=== PATIENT | male | born 1950 | race Hispanic/Latino ===

== ENCOUNTER 2018-01-31 19:05 | Emergency (ER) | payer OTHER ==
[~2018-01-31] VITALS: Ht 175.3 cm; Wt 128.8 kg
[~2018-01-31 19:05] MED LIST: ASPIRIN BUFFER325 MG PO; AZITHROMYCIN250 MG PO; DIOVAN HCT 1601 EAC1 PO; LISINOPRIL-HCT1 EAC1 PO; MEDROL4 MG/DOSE-; TYLENOL325 MG PO
== END 2018-01-31 19:33 | disposition home or self-care (01) ==
LOC: ER 19:05
DX: H57.11 Ocular pain, right eye (principal); H00.011 Hordeolum externum right upper eyelid; I10 Essential (primary) hypertension
CPT/HCPCS: 99282

== ENCOUNTER 2020-10-02 19:26 | Observation (INO) | payer MEDICARE, OTHER ==
[~2020-10-02] VITALS: Ht 175.3 cm; Wt 136.1 kg
[2020-10-02] MEDS ORDERED: ONDANSETRON HCL INJ 2MG/ML 2ML 2 MG/ML VIAL IV STA (19:30)
[2020-10-02] MEDS ORDERED: MORPHINE SULFATE INJ 10 MG/ML IV ONE (19:30)
[2020-10-02] MEDS ORDERED: SODIUM CHLORIDE 0.9% 1000ML 1,000 ML IV SCH (19:30)
[2020-10-02 19:54] LABS: BASOPHILS % 0.3 % (0.0-1.0); EOSINOPHILS % 0.1 % (0.0-6.0); HEMATOCRIT 41.1 % (38.2-49.6); HEMOGLOBIN 13.4 g/dL (14.0-18.0); LYMPHOCYTES # (AUTO) 1.9 (1.0-3.2); LYMPHOCYTES % 15.3 % (18.0-39.1); MEAN CORPUSCULAR HEMOGLOBIN 28.3 pg (28-32); MEAN CORPUSCULAR HGB CONC 32.6 g/dL (31-35); MEAN CORPUSCULAR VOLUME 86.7 fL (81-99); MONOCYTES # (AUTO) 0.8 (0.2-0.8); MONOCYTES % 6.3 % (4.4-11.3); NEUTROPHILS # (AUTO) 9.7 (2.1-6.9); PLATELET COUNT 240 x10e3/uL (140-360); RED BLOOD COUNT 4.74 x10e6/uL (4.3-5.7); RED CELL DISTRIBUTION WIDTH 14.8 % (11.7-14.4)
[2020-10-02 19:58] LABS: CLARITY,URINE HAZY (CLEAR); COLOR,URINE YELLOW (YELLOW); KETONES,URINE NEGATIVE (NEGATIVE); LEUKOCYTE ESTERASE ,URINE NEGATIVE (NEGATIVE); NITRITE,URINE NEGATIVE (NEGATIVE); PROTEIN,URINE DIPSTICK NEGATIVE (NEGATIVE); URINE UROBILINOGEN 1 mg/dL (0.2 - 1)
[2020-10-02 19:59] LABS: BACTERIA,URINE FEW /HPF; EPITHELIAL CELLS,URINE FEW /LPF; WBC,URINE (MAN) 0-5 /HPF (0-5)
[2020-10-02 20:12] LABS: ALANINE AMINOTRANSFERASE 37 IU/L (0-55); ALBUMIN 3.6 g/dL (3.5-5.0); ALBUMIN/GLOBULIN RATIO 0.9 (0.8-2.0); ALKALINE PHOSPHATASE 108 IU/L (40-150); ANION GAP 14.6 mmol/L (8-16); BLOOD UREA NITROGEN 12 mg/dL (7-26); BUN/CREATININE RATIO 19 (6-25); CALCIUM 8.8 mg/dL (8.4-10.2); CARBON DIOXIDE 31 mmol/L (22-29); CHLORIDE 99 mmol/L (98-107); CREATINE KINASE 101 IU/L (30-200); CREATININE, SERUM 0.63 mg/dL (0.72-1.25); EST GLOMERULAR FILTRATION RATE > 60 ML/MIN (60-); GLUCOSE 105 mg/dL (74-118); POTASSIUM 3.6 mmol/L (3.5-5.1); SODIUM 141 mmol/L (136-145)
[2020-10-02] MEDS ORDERED: MORPHINE SULFATE INJ 2 MG/ML SYR ONE (20:36)
[2020-10-02] MEDS ORDERED: IOPAMIDOL 370 MG/ML 200 ML INFUS..BTL INJ ONE (20:45)
[2020-10-02] MEDS ORDERED: SODIUM CHLORIDE 0.9% 50ML 50 ML ONE (20:45)
[2020-10-02] MEDS: SODIUM CHLORIDE 0.9% 1000ML 1,000 ML IV SCH ×2 (22:14→22:39)
[2020-10-02] MEDS ORDERED: ONDANSETRON HCL INJ 2MG/ML 2ML 2 MG/ML VIAL IV PRN (22:15)
[2020-10-02] MEDS ORDERED: TAMSULOSIN HCL 0.4 MG CAP PO SCH (22:15)
[2020-10-02] MEDS ORDERED: MORPHINE SULFATE INJ 4 MG/ML INJ 1ML IV PRN (22:15)
[2020-10-02 23:46] VITALS: BP 151/78
[2020-10-03] VITALS: BP 151/78
[2020-10-03 04:00] VITALS: BP 151/76
[2020-10-03 06:14] LABS: BASOPHILS % 0.3 % (0.0-1.0); EOSINOPHILS % 0.1 % (0.0-6.0); HEMOGLOBIN 13.5 g/dL (14.0-18.0); LYMPHOCYTES # (AUTO) 1.4 (1.0-3.2); LYMPHOCYTES % 11.6 % (18.0-39.1); MEAN CORPUSCULAR HEMOGLOBIN 28.7 pg (28-32); MEAN CORPUSCULAR HGB CONC 32.1 g/dL (31-35); MEAN CORPUSCULAR VOLUME 89.4 fL (81-99); MONOCYTES # (AUTO) 0.8 (0.2-0.8); MONOCYTES % 6.3 % (4.4-11.3); NEUTROPHILS # (AUTO) 9.6 (2.1-6.9); NEUTROPHILS % 80.9 % (38.7-80.0); PLATELET COUNT 222 x10e3/uL (140-360); RED CELL DISTRIBUTION WIDTH 14.9 % (11.7-14.4)
[2020-10-03 06:49] LABS: ALANINE AMINOTRANSFERASE 33 IU/L (0-55); ALBUMIN 3.3 g/dL (3.5-5.0); ALBUMIN/GLOBULIN RATIO 0.9 (0.8-2.0); ALKALINE PHOSPHATASE 96 IU/L (40-150); ANION GAP 14.8 mmol/L (8-16); BLOOD UREA NITROGEN 9 mg/dL (7-26); BUN/CREATININE RATIO 15 (6-25); CALCIUM 8.5 mg/dL (8.4-10.2); CARBON DIOXIDE 29 mmol/L (22-29); CHLORIDE 102 mmol/L (98-107); CREATININE, SERUM 0.62 mg/dL (0.72-1.25); EST GLOMERULAR FILTRATION RATE > 60 ML/MIN (60-); GLUCOSE 98 mg/dL (74-118); POTASSIUM 3.8 mmol/L (3.5-5.1); SODIUM 142 mmol/L (136-145)
[2020-10-03 08:00] VITALS: BP 137/69
[2020-10-03] MEDS ORDERED: CLONIDINE HCL0.1 MG PO (08:38)
[2020-10-03] MEDS ORDERED: IRBESARTAN300 MG PO (08:38)
[2020-10-03] MEDS ORDERED: LABETALOL HCL100 MG PO (08:38)
[2020-10-03] MEDS ORDERED: ATORVASTATIN CA20 MG PO (08:38)
[2020-10-03] MEDS ORDERED: CEFTRIAXONE SOD 1 GM/NS 50 ML 50 ML IV SCH (08:45)
[2020-10-03] MEDS ORDERED: HYDRALAZINE HCL 25 MG TAB PO PRN (08:45)
[2020-10-03] MEDS ORDERED: TAMSULOSIN HCL 0.4 MG CAP PO SCH (08:45)
[2020-10-03] MEDS ORDERED: ACETAMINOPHEN/CODEINE 300MG - 30MG TAB PO PRN (08:45)
[2020-10-03] MEDS: SODIUM CHLORIDE 0.9% 1000ML 1,000 ML IV SCH (08:49)
[2020-10-03 08:50] VITALS: BP 137/69
[2020-10-03 12:00] VITALS: BP 143/77
== END 2020-10-03 14:14 | disposition home or self-care (01) ==
LOC: ER 19:32 → ERHOLD 22:23 → MED/SURG2 23:12
PROVIDERS: ADMIT Internal Medicine; ATTEND Internal Medicine
DX: N13.2 Hydronephrosis with renal and ureteral calculous obstruction (principal); I10 Essential (primary) hypertension; E66.01 Morbid (severe) obesity due to excess calories; Z68.41 Body mass index [BMI] 40.0-44.9, adult; N13.4 Hydroureter; Z20.822 Contact with and (suspected) exposure to COVID-19; N40.0 Benign prostatic hyperplasia without lower urinary tract symptoms
CPT/HCPCS: 36415 ×2; 74177; 80053 ×2; 81001; 82550; 82553; 83690; 84484; 85025 ×2; 93005; 99284; G0378 ×2; J0696; J2270; J2405; J7030 ×2; Q9967; U0002

== ENCOUNTER 2023-12-19 20:10 | Inpatient (IN) | payer MEDICARE ==
[~2023-12-19] VITALS: Ht 175.3 cm; Wt 158.8 kg
[~2023-12-19 20:10] MED LIST changes: +AMIODARONE HCL400 MG PO; +AMLODIPINE BESYL5 MG PO; +ATORVASTATIN CA20 MG PO; +CEFDINIR300 MG PO; +CLONIDINE HCL0.1 MG PO; +DOXAZOSIN MESYLA2 MG PO; +DOXYCYCLINE HY100 MG PO; +ELIQUIS5 MG PO; +FAMOTIDINE20 MG PO; +FLOMAX0.4 MG PO; +FUROSEMIDE40 MG PO; +IRBESARTAN300 MG PO; +LABETALOL HCL100 MG PO; +NIFEDIPINE ER30 M1 PO; +OMEPRAZOLE40 MG PO; +POTASSIUM CHLO20 ME1 PO
[2023-12-19] MEDS ORDERED: ACETAMINOPHEN 325 MG TAB PO STA (20:24)
[2023-12-19] MEDS ORDERED: SODIUM CHLORIDE 0.9% 1000ML 1,000 ML IV STA (20:24)
[2023-12-19] MEDS: ACETAMINOPHEN 1000 MG/100 ML IV STA (20:36)
[2023-12-19] MEDS ORDERED: ACETAMINOPHEN 1000 MG/100 ML 100 ML IV ONE (20:37)
[2023-12-19 20:41] LABS: BASOPHILS % 0.2 % (0.0-1.0); EOSINOPHILS % 0.1 % (0.0-6.0); HEMATOCRIT 41.3 % (38.2-49.6); HEMOGLOBIN 13.7 g/dL (14.0-18.0); LYMPHOCYTES # (AUTO) 0.6 (1.0-3.2); LYMPHOCYTES % 5.2 % (18.0-39.1); MEAN CORPUSCULAR HEMOGLOBIN 29.1 pg (28-32); MEAN CORPUSCULAR HGB CONC 33.2 g/dL (31-35); MEAN CORPUSCULAR VOLUME 87.7 fL (81-99); MONOCYTES % 0.2 % (4.4-11.3); NEUTROPHILS # (AUTO) 10.4 (2.1-6.9); NEUTROPHILS % 93.8 % (38.7-80.0); PLATELET COUNT 247 x10e3/uL (140-360); RED BLOOD COUNT 4.71 x10e6/uL (4.3-5.7); RED CELL DISTRIBUTION WIDTH 15.9 % (11.7-14.4); WHITE BLOOD COUNT 11.06 x10e3/uL (4.8-10.8)
[2023-12-19 20:58] LABS: ALBUMIN 3.9 g/dL (3.5-5.0); ALBUMIN/GLOBULIN RATIO 0.9 (0.8-2.0); ANION GAP 22.2 mmol/L (8-16); BILIRUBIN,TOTAL 0.7 mg/dL (0.2-1.2); CALCIUM 9.8 mg/dL (8.4-10.2); CREATININE, SERUM 1.09 mg/dL (0.72-1.25); TOTAL PROTEIN 8.3 g/dL (6.5-8.1)
[2023-12-19 20:59] LABS: POTASSIUM 3.2 mmol/L (3.5-5.1)
[2023-12-19 21:04] LABS: B-TYPE NATRIURETIC PEPTIDE2 39.5 pg/mL (0-100); TROPONIN I 0.007 ng/mL (0-0.300)
[2023-12-19] MEDS ORDERED: SODIUM CHLORIDE 0.9% 1000ML 1,000 ML ONE (21:22)
[2023-12-19] MEDS: SODIUM CHLORIDE 0.9% 1000ML 1,000 ML IV STA (21:22)
[2023-12-19 21:42] LABS: INFLUENZAE A&B ANTIGEN (RAPID) NEGATIVE (NEGATIVE); RESPIRATORY SYNC. VIRUS NEGATIVE (NEGATIVE)
[2023-12-19 22:10] VITALS: PULSE 82; RESP 20; O2SAT 100
[2023-12-19] MEDS: SODIUM CHLORIDE 0.9% 1000ML 2,000 ML IV STA (22:14)
[2023-12-19] MEDS ORDERED: ONDANSETRON HCL INJ 2MG/ML 2ML 2 MG/ML VIAL IV PRN (22:15)
[2023-12-19] MEDS: TRAMADOL HCL 50 MG TAB PO ONE (22:33)
[2023-12-20] VITALS (9 sets, daily range): BP systolic 124–137; BP diastolic 67–79; PULSE 64–84; RESP 20; TEMP 97.6–97.8; O2SAT 96–100
[2023-12-20] MEDS: SODIUM CHLORIDE 0.9% 1000ML 1,000 ML IV SCH (00:27)
[2023-12-20 00:36] LABS: BILIRUBIN,URINE NEGATIVE (NEGATIVE); CLARITY,URINE CLEAR (CLEAR); COLOR,URINE YELLOW (YELLOW); GLUCOSE, URINE NEGATIVE (NEGATIVE); KETONES,URINE NEGATIVE (NEGATIVE); LEUKOCYTE ESTERASE ,URINE NEGATIVE (NEGATIVE); NITRITE,URINE NEGATIVE (NEGATIVE); PH,URINE 6 (5 - 7); PROTEIN,URINE DIPSTICK NEGATIVE (NEGATIVE); URINE UROBILINOGEN 0.2 mg/dL (0.2 - 1)
[2023-12-20 02:50] LABS: BACTERIA,URINE MODERATE /HPF; EPITHELIAL CELLS,URINE FEW /LPF
[2023-12-20 04:52] LABS: BASOPHILS % 0.2 % (0.0-1.0); EOSINOPHILS % 0.3 % (0.0-6.0); HEMATOCRIT 34.3 % (38.2-49.6); HEMOGLOBIN 11.6 g/dL (14.0-18.0); LYMPHOCYTES # (AUTO) 0.6 (1.0-3.2); LYMPHOCYTES % 4.6 % (18.0-39.1); MEAN CORPUSCULAR HEMOGLOBIN 29.4 pg (28-32); MEAN CORPUSCULAR HGB CONC 33.8 g/dL (31-35); MEAN CORPUSCULAR VOLUME 86.8 fL (81-99); MONOCYTES # (AUTO) 0.6 (0.2-0.8); MONOCYTES % 4.7 % (4.4-11.3); NEUTROPHILS # (AUTO) 11.6 (2.1-6.9); NEUTROPHILS % 89.8 % (38.7-80.0); PLATELET COUNT 191 x10e3/uL (140-360); RED BLOOD COUNT 3.95 x10e6/uL (4.3-5.7); RED CELL DISTRIBUTION WIDTH 16.1 % (11.7-14.4); WHITE BLOOD COUNT 12.96 x10e3/uL (4.8-10.8)
[2023-12-20 05:11] LABS: ALBUMIN 3.2 g/dL (3.5-5.0); ALBUMIN/GLOBULIN RATIO 0.9 (0.8-2.0); ANION GAP 13.9 mmol/L (8-16); BILIRUBIN,TOTAL 0.7 mg/dL (0.2-1.2); CALCIUM 8.5 mg/dL (8.4-10.2); CHOL/HDL RATIO 3.6 (3.9-4.7); CREATININE, SERUM 0.9 mg/dL (0.72-1.25); TOTAL PROTEIN 6.9 g/dL (6.5-8.1)
[2023-12-20 05:25] LABS: POTASSIUM 2.9 mmol/L (3.5-5.1)
[2023-12-20] MEDS ORDERED: POTASSIUM CHLORIDE 20MEQ/100ML 100 ML ONE (05:31)
[2023-12-20] MEDS ORDERED: POTASSIUM CHLORIDE 20 MEQ TAB CR PO ONE (05:31)
[2023-12-20] MEDS: POTASSIUM CHLORIDE 20 MEQ TAB CR PO STA (05:34)
[2023-12-20] MEDS: POTASSIUM CHLORIDE 20MEQ/100ML 100 ML IV STA (05:34)
[2023-12-20 05:49] LABS: TROPONIN I 0.014 ng/mL (0-0.300)
[2023-12-20] MEDS: FAMOTIDINE 20 MG TAB PO SCH (09:28)
[2023-12-20] MEDS: TAMSULOSIN HCL 0.4 MG CAP PO SCH (09:29)
[2023-12-20] MEDS: DOXAZOSIN MESYLATE 2 MG TAB PO SCH (09:29)
[2023-12-20] MEDS: AMIODARONE HCL 200 MG TAB PO SCH (09:30)
[2023-12-20] MEDS: APIXABAN 5 MG TABLET PO SCH (09:30)
[2023-12-20] MEDS: PANTOPRAZOLE SOD 40 MG TABEC PO SCH (09:30)
[2023-12-20] MEDS: Morphine 4mg INJECTION 4 MG/ML INJ IV PRN (10:14)
[2023-12-20] MEDS ORDERED: TRELEGY ELLIPT1 EACH INH (10:30)
[2023-12-20] MEDS ORDERED: NAC600 MG PO (10:30)
[2023-12-20] MEDS ORDERED: NIFEDIPINE ER90 M1 PO (10:30)
[2023-12-20 13:57] LABS: TROPONIN I 0.005 ng/mL (0-0.300)
[2023-12-20] MEDS: ACETAMINOPHEN/CODEINE 300MG - 30MG TAB PO PRN (14:45)
[2023-12-20] MEDS: ATORVASTATIN 20 MG TAB PO SCH (20:39)
[2023-12-21] VITALS (9 sets, daily range): BP systolic 117–166; BP diastolic 59–80; PULSE 63–85; RESP 18–20; TEMP 97.6–98.1; O2SAT 93–96
[2023-12-21 08:58] LABS: BASOPHILS % 0.4 % (0.0-1.0); EOSINOPHILS # (AUTO) 0.1 (0.0-0.4); EOSINOPHILS % 1.6 % (0.0-6.0); HEMATOCRIT 38.3 % (38.2-49.6); HEMOGLOBIN 12.7 g/dL (14.0-18.0); LYMPHOCYTES # (AUTO) 1.6 (1.0-3.2); LYMPHOCYTES % 23.7 % (18.0-39.1); MEAN CORPUSCULAR HEMOGLOBIN 28.9 pg (28-32); MEAN CORPUSCULAR HGB CONC 33.2 g/dL (31-35); MONOCYTES # (AUTO) 0.6 (0.2-0.8); MONOCYTES % 8.3 % (4.4-11.3); NEUTROPHILS # (AUTO) 4.5 (2.1-6.9); NEUTROPHILS % 65.7 % (38.7-80.0); PLATELET COUNT 218 x10e3/uL (140-360); RED CELL DISTRIBUTION WIDTH 16.1 % (11.7-14.4); WHITE BLOOD COUNT 6.83 x10e3/uL (4.8-10.8)
[2023-12-21 09:42] LABS: ANION GAP 13.6 mmol/L (8-16); CALCIUM 9.2 mg/dL (8.4-10.2); CREATININE, SERUM 0.79 mg/dL (0.72-1.25); POTASSIUM 3.6 mmol/L (3.5-5.1)
[2023-12-21] MEDS: FUROSEMIDE INJ 10 MG/ML 2 ML VIAL IV SCH (11:55)
[2023-12-21] MEDS: SENNOSIDES 8.6 MG TAB PO SCH (18:08)
[2023-12-21] MEDS: MAGNESIUM HYDROXIDE 30 ML UDC PO SCH (18:08)
[2023-12-21] MEDS: FUROSEMIDE INJ 100 MG in SODIUM CHLORIDE 0.9% 90 ML IV SCH (22:56)
[2023-12-22] VITALS (10 sets, daily range): BP systolic 116–165; BP diastolic 53–84; PULSE 60–74; RESP 18–20; TEMP 97.4–98.4; O2SAT 95–99
[2023-12-22] MEDS: TRAMADOL HCL 50 MG TAB PO PRN (01:02)
[2023-12-22] MEDS: APIXABAN 5 MG TABLET PO SCH (22:02)
[2023-12-23] VITALS (10 sets, daily range): BP systolic 145–176; BP diastolic 60–91; PULSE 57–75; RESP 18–20; TEMP 97.5–98.5; O2SAT 94–98
[2023-12-23 06:27] LABS: ANION GAP 14.6 mmol/L (8-16); CALCIUM 8.5 mg/dL (8.4-10.2); CREATININE, SERUM 0.86 mg/dL (0.72-1.25)
[2023-12-23 06:30] LABS: POTASSIUM 2.6 mmol/L (3.5-5.1)
[2023-12-23] MEDS: POTASSIUM CHLORIDE 20MEQ/100ML 100 ML IV ONE ×2 (09:48→09:49)
[2023-12-23] MEDS: FUROSEMIDE INJ 10 MG/ML 2 ML VIAL ONE (09:49)
[2023-12-23] MEDS: FUROSEMIDE INJ 10 MG/ML 4 ML VIAL ONE (09:50)
[2023-12-23] MEDS: SODIUM CHLORIDE 0.9% 100 ML ONE (09:50)
[2023-12-23] MEDS ORDERED: ONDANSETRON HCL 4 MG ORAL DISINTEGRATING TAB PO PRN (11:30)
[2023-12-23] MEDS: CLINDAMYCIN PHOS 900MG/ 50ML 50 ML IV SCH (14:50)
[2023-12-24] VITALS (9 sets, daily range): BP systolic 152–165; BP diastolic 67–110; PULSE 59–69; RESP 18–20; TEMP 97.7–98.4; O2SAT 93–97
[2023-12-24 06:21] LABS: ANION GAP 15.6 mmol/L (8-16); CALCIUM 8.3 mg/dL (8.4-10.2); CREATININE, SERUM 0.84 mg/dL (0.72-1.25)
[2023-12-24 06:25] LABS: POTASSIUM 2.6 mmol/L (3.5-5.1)
[2023-12-24] MEDS ORDERED: POTASSIUM CHLORIDE 10MEQ/100ML 100 ML IV ONE ×2 (07:15→09:15)
[2023-12-24] MEDS: POTASSIUM CHLORIDE 20MEQ/100ML 100 ML IV ONE ×2 (08:23)
[2023-12-24] MEDS: FUROSEMIDE 40 MG TAB PO SCH (15:41)
[2023-12-24 17:32] LABS: MAGNESIUM 2.5 MG/DL (1.3-2.1); PHOSPHORUS 2.3 MG/DL (2.3-4.7)
[2023-12-24] MEDS: POTASSIUM CHLORIDE 20 MEQ TAB CR PO SCH (21:29)
[2023-12-25] VITALS: BP 170/84; PULSE 113; RESP 21; TEMP 98.5; O2SAT 92
[2023-12-25 04:00] VITALS: BP 155/81; PULSE 52; RESP 20; TEMP 98.2; O2SAT 96
[2023-12-25 07:04] LABS: ANION GAP 16.2 mmol/L (8-16); CALCIUM 8.8 mg/dL (8.4-10.2); CREATININE, SERUM 0.84 mg/dL (0.72-1.25); POTASSIUM 3.2 mmol/L (3.5-5.1)
[2023-12-25 07:42] LABS: MAGNESIUM 2.5 MG/DL (1.3-2.1); PHOSPHORUS 3.2 MG/DL (2.3-4.7)
[2023-12-25 08:54] VITALS: BP 177/77; PULSE 68; RESP 18; TEMP 98; O2SAT 97
[2023-12-25 09:48] VITALS: BP 177/77; PULSE 68; RESP 18; TEMP 98; O2SAT 97
[2023-12-25] MEDS ORDERED: POTASSIUM CHLO20 ME1 PO (10:21)
[2023-12-25] MEDS ORDERED: FUROSEMIDE40 MG PO (10:21)
[2023-12-25] MEDS ORDERED: CLINDAMYCIN HC300 MG PO (10:21)
[2023-12-25] MEDS ORDERED: SENOKOT8.6 MG PO (10:21)
[2023-12-25 12:20] VITALS: BP 170/74; PULSE 59; RESP 18; TEMP 98.2; O2SAT 97
[2023-12-25] MEDS: POTASSIUM CHLORIDE 20 MEQ TAB CR PO STA (12:29)
== END 2023-12-25 15:00 | disposition home or self-care (01) | DRG 872 ==
LOC: ER 20:15 → ERHOLD 22:08 → MED/SURG3 12-20 07:49
PROVIDERS: ADMIT Internal Medicine; ATTEND Internal Medicine
DX: A41.9 Sepsis, unspecified organism (principal); N39.0 Urinary tract infection, site not specified; L97.819 Non-pressure chronic ulcer of other part of right lower leg with unspecified severity; I48.20 Chronic atrial fibrillation, unspecified; I48.92 Unspecified atrial flutter; Z68.43 Body mass index [BMI] 50.0-59.9, adult; L03.115 Cellulitis of right lower limb; R65.20 Severe sepsis without septic shock; Z79.01 Long term (current) use of anticoagulants; Z87.440 Personal history of urinary (tract) infections; L40.9 Psoriasis, unspecified; Z88.6 Allergy status to analgesic agent; Z11.52 Encounter for screening for COVID-19; Z87.442 Personal history of urinary calculi; E66.01 Morbid (severe) obesity due to excess calories; I10 Essential (primary) hypertension; N50.89 Other specified disorders of the male genital organs; E87.70 Fluid overload, unspecified; F40.240 Claustrophobia; Z96.611 Presence of right artificial shoulder joint; I87.2 Venous insufficiency (chronic) (peripheral); E87.6 Hypokalemia; N40.0 Benign prostatic hyperplasia without lower urinary tract symptoms
CPT/HCPCS: 36415; 71045; 80048; 80053; 80061; 81001; 82550; 82948; 83036; 83605; 83690; 83735; 83880; 84100; 84132; 84484; 85025; 87040; 87400; 87420; 93005; 93306; 94799; 99252; 99285; J1940; J2270; J2543; J3480; J7030; J7050; U0002

== ENCOUNTER 2024-04-13 13:06 | Inpatient (IN) | payer MEDICARE ==
[~2024-04-13] VITALS: Ht 175.3 cm; Wt 136.1 kg
[~2024-04-13 13:06] MED LIST changes: +CLINDAMYCIN HC300 MG PO; +NAC600 MG PO; +NIFEDIPINE ER90 M1 PO; +SENOKOT8.6 MG PO; +TRELEGY ELLIPT1 EACH INH
[2024-04-13 13:20] VITALS: TEMP 98.8
[2024-04-13] MEDS: SODIUM CHLORIDE 0.9% 1000ML 1,000 ML IV STA ×2 (14:14→15:36)
[2024-04-13 14:44] LABS: BASOPHILS % 0.3 % (0.0-1.0); EOSINOPHILS # (AUTO) 0.1 (0.0-0.4); EOSINOPHILS % 0.6 % (0.0-6.0); HEMATOCRIT 43.6 % (38.2-49.6); LYMPHOCYTES # (AUTO) 0.9 (1.0-3.2); LYMPHOCYTES % 10.4 % (18.0-39.1); MEAN CORPUSCULAR HGB CONC 32.1 g/dL (31-35); MEAN CORPUSCULAR VOLUME 90.5 fL (81-99); MONOCYTES # (AUTO) 0.6 (0.2-0.8); MONOCYTES % 6.5 % (4.4-11.3); NEUTROPHILS # (AUTO) 7.3 (2.1-6.9); NEUTROPHILS % 81.2 % (38.7-80.0); PLATELET COUNT 225 x10e3/uL (140-360); RED BLOOD COUNT 4.82 x10e6/uL (4.3-5.7); WHITE BLOOD COUNT 9.01 x10e3/uL (4.8-10.8)
[2024-04-13 14:49] LABS: INR 1.06; PARTIAL THROMBOPLASTIN TIME 32.5 seconds (23.8-35.5); PROTHROMBIN TIME 14.6 seconds (11.9-14.5)
[2024-04-13 15:01] LABS: ALBUMIN 3.8 g/dL (3.5-5.0); ALBUMIN/GLOBULIN RATIO 1.1 (0.8-2.0); ANION GAP 14.2 mmol/L (8-16); BILIRUBIN,TOTAL 0.6 mg/dL (0.2-1.2); CREATININE, SERUM 1.21 mg/dL (0.72-1.25); POTASSIUM 3.2 mmol/L (3.5-5.1); TOTAL PROTEIN 7.2 g/dL (6.5-8.1)
[2024-04-13 15:11] LABS: BILIRUBIN,URINE NEGATIVE (NEGATIVE); CLARITY,URINE SL CLOUDY (CLEAR); COLOR,URINE YELLOW (YELLOW); GLUCOSE, URINE NEGATIVE (NEGATIVE); KETONES,URINE NEGATIVE (NEGATIVE); LEUKOCYTE ESTERASE ,URINE TRACE (NEGATIVE); NITRITE,URINE NEGATIVE (NEGATIVE); PH,URINE 7 (5 - 7); PROTEIN,URINE DIPSTICK TRACE (NEGATIVE); URINE UROBILINOGEN 1 mg/dL (0.2 - 1)
[2024-04-13 15:15] LABS: B-TYPE NATRIURETIC PEPTIDE2 118.8 pg/mL (0-100)
[2024-04-13 15:21] LABS: TROPONIN I 0.03 ng/mL (0-0.300)
[2024-04-13 15:27] LABS: BACTERIA,URINE RARE /HPF; RBC,URINE 0-5 /HPF (0-5); WBC,URINE (MAN) 0-5 /HPF (0-5)
[2024-04-13 15:28] LABS: EPITHELIAL CELLS,URINE FEW /LPF
[2024-04-13] MEDS ORDERED: KETOROLAC TROMETHAMINE 30 MG/ML VIAL IV STA (15:49)
[2024-04-13] MEDS ORDERED: ONDANSETRON HCL INJ 2MG/ML 2ML 2 MG/ML VIAL IV PRN (16:45)
[2024-04-13 17:30] VITALS: PULSE 54; RESP 16
[2024-04-13] MEDS: SODIUM CHLORIDE 0.9% 1000ML 1,000 ML IV SCH (18:17)
[2024-04-13] MEDS: ACETAMINOPHEN 325 MG TAB PO ONE (18:23)
[2024-04-13 20:00] VITALS: BP_SYST 116; BP_SYST 131; BP_DIAS 61; BP_DIAS 63; PULSE 54; PULSE 65; RESP 16; RESP 18; TEMP 97.8; TEMP 97.9; O2SAT 100; O2SAT 97
[2024-04-13 21:00] VITALS: BP 116/61; PULSE 54; RESP 18; TEMP 97.8; O2SAT 97
[2024-04-13] MEDS ORDERED: NIFEDIPINE10 MG PO (22:11)
[2024-04-14] VITALS (8 sets, daily range): BP systolic 137–175; BP diastolic 59–88; PULSE 61–69; RESP 17–21; TEMP 97.5–98.9; O2SAT 96–98
[2024-04-14 06:08] LABS: BASOPHILS % 0.2 % (0.0-1.0); EOSINOPHILS # (AUTO) 0.1 (0.0-0.4); EOSINOPHILS % 0.6 % (0.0-6.0); HEMATOCRIT 40.3 % (38.2-49.6); HEMOGLOBIN 12.7 g/dL (14.0-18.0); LYMPHOCYTES % 11.2 % (18.0-39.1); MEAN CORPUSCULAR HEMOGLOBIN 28.9 pg (28-32); MEAN CORPUSCULAR HGB CONC 31.5 g/dL (31-35); MEAN CORPUSCULAR VOLUME 91.8 fL (81-99); MONOCYTES # (AUTO) 0.5 (0.2-0.8); MONOCYTES % 5.8 % (4.4-11.3); NEUTROPHILS # (AUTO) 7.1 (2.1-6.9); NEUTROPHILS % 81.6 % (38.7-80.0); PLATELET COUNT 194 x10e3/uL (140-360); RED BLOOD COUNT 4.39 x10e6/uL (4.3-5.7); RED CELL DISTRIBUTION WIDTH 16.1 % (11.7-14.4); WHITE BLOOD COUNT 8.66 x10e3/uL (4.8-10.8)
[2024-04-14 06:24] LABS: ALBUMIN 3.3 g/dL (3.5-5.0); ALBUMIN/GLOBULIN RATIO 1.1 (0.8-2.0); ANION GAP 14.9 mmol/L (8-16); BILIRUBIN,TOTAL 0.4 mg/dL (0.2-1.2); CALCIUM 8.4 mg/dL (8.4-10.2); CREATININE, SERUM 0.74 mg/dL (0.72-1.25); TOTAL PROTEIN 6.4 g/dL (6.5-8.1)
[2024-04-14 06:30] LABS: POTASSIUM 2.9 mmol/L (3.5-5.1)
[2024-04-14 07:27] LABS: TROPONIN I 0.009 ng/mL (0-0.300)
[2024-04-14] MEDS: SENNOSIDES 8.6 MG TAB PO SCH (08:58)
[2024-04-14] MEDS: FAMOTIDINE 20 MG TAB PO SCH (08:58)
[2024-04-14] MEDS: TAMSULOSIN HCL 0.4 MG CAP PO SCH (08:59)
[2024-04-14] MEDS: POTASSIUM CHLORIDE 10MEQ EA PO SCH (08:59)
[2024-04-14] MEDS: AMIODARONE HCL 200 MG TAB PO SCH (09:00)
[2024-04-14] MEDS: LABETALOL HCL 100 MG TAB PO SCH (09:00)
[2024-04-14] MEDS: PANTOPRAZOLE SOD 40 MG TABEC PO SCH (09:00)
[2024-04-14] MEDS: APIXABAN 5 MG TABLET PO SCH (09:01)
[2024-04-14 12:50] LABS: TROPONIN I 0.013 ng/mL (0-0.300)
[2024-04-14] MEDS: ATORVASTATIN 10 MG TAB PO SCH (21:47)
[2024-04-14] MEDS: ACETAMINOPHEN 325 MG TAB PO SCH (21:47)
[2024-04-14] MEDS ORDERED: NIFEDIPINE 10 MG CAP PO SCH (23:15)
[2024-04-15] VITALS (7 sets, daily range): BP systolic 131–164; BP diastolic 60–69; PULSE 58–64; RESP 16–20; TEMP 97.5–98.7; O2SAT 97–99
[2024-04-15] MEDS: NIFEDIPINE CR 30 MG TAB PO SCH ×2 (02:16→08:27)
[2024-04-15 11:07] LABS: ANION GAP 15.3 mmol/L (8-16); CALCIUM 9.1 mg/dL (8.4-10.2); CREATININE, SERUM 0.73 mg/dL (0.72-1.25)
[2024-04-15 11:08] LABS: POTASSIUM 3.3 mmol/L (3.5-5.1)
[2024-04-15] MEDS: Vancomycin IV 1 GM in SODIUM CHLORIDE 0.9% 250ML 250 ML IV SCH (14:31)
[2024-04-16] VITALS (10 sets, daily range): BP systolic 101–152; BP diastolic 59–76; PULSE 61–100; RESP 17–20; TEMP 97.1–98.8; O2SAT 95–98
[2024-04-17] VITALS (8 sets, daily range): BP systolic 133–161; BP diastolic 62–73; PULSE 64–70; RESP 17–20; TEMP 97.7–98.8; O2SAT 96–97
[2024-04-17] MEDS: FUROSEMIDE INJ 10 MG/ML 4 ML VIAL IV SCH (13:22)
[2024-04-17] MEDS: AMOXICILLIN/CLAVULANATE K 875 MG TAB PO SCH (21:20)
[2024-04-18] VITALS (7 sets, daily range): BP systolic 125–162; BP diastolic 60–85; PULSE 63–70; RESP 18–20; TEMP 97.5–98.9; O2SAT 95–100
[2024-04-18] MEDS ORDERED: ONDANSETRON HCL 4 MG ORAL DISINTEGRATING TAB PO PRN (15:15)
[2024-04-18] MEDS ORDERED: FUROSEMIDE40 MG PO (19:11)
[2024-04-18] MEDS ORDERED: AUGMENTIN 500-1 EACH PO (19:26)
== END 2024-04-18 20:49 | disposition home or self-care (01) | DRG 690 ==
LOC: ER 13:19 → ERHOLD 16:42 → MED/SURG3 18:07 → OBSVTOIN 04-15 14:25
PROVIDERS: ADMIT Internal Medicine; ATTEND Internal Medicine
DX: N39.0 Urinary tract infection, site not specified (principal); I48.20 Chronic atrial fibrillation, unspecified; R78.81 Bacteremia; Z68.41 Body mass index [BMI] 40.0-44.9, adult; E66.01 Morbid (severe) obesity due to excess calories; B96.89 Other specified bacterial agents as the cause of diseases classified elsewhere; B96.4 Proteus (mirabilis) (morganii) as the cause of diseases classified elsewhere; B95.2 Enterococcus as the cause of diseases classified elsewhere; I95.2 Hypotension due to drugs; T46.5X5A Adverse effect of other antihypertensive drugs, initial encounter; T44.6X5A Adverse effect of alpha-adrenoreceptor antagonists, initial encounter; T46.1X5A Adverse effect of calcium-channel blockers, initial encounter; Y92.009 Unspecified place in unspecified non-institutional (private) residence as the place of occurrence of the external cause; E87.6 Hypokalemia; R42 Dizziness and giddiness; R53.81 Other malaise; R00.1 Bradycardia, unspecified; I10 Essential (primary) hypertension; G47.33 Obstructive sleep apnea (adult) (pediatric); K21.9 Gastro-esophageal reflux disease without esophagitis; L40.9 Psoriasis, unspecified; Z11.52 Encounter for screening for COVID-19; Z87.442 Personal history of urinary calculi; Z79.899 Other long term (current) drug therapy
CPT/HCPCS: 36415; 70450; 71045; 72125; 80048; 80053; 80202; 81001; 82550; 83605; 83735; 83880; 84484; 85025; 85610; 85730; 87040; 87071; 87086; 87186; 87205; 87400; 93005; 93306; 99252; 99284; G0378; J1940; J2543; J7030; J7050; U0002

== ENCOUNTER 2025-05-25 14:38 | Inpatient (IN) | payer MEDICARE ==
[~2025-05-25] VITALS: Ht 175.3 cm; Wt 138.3 kg
[~2025-05-25 14:38] MED LIST changes: +AUGMENTIN 500-1 EACH PO; +NIFEDIPINE10 MG PO
[2025-05-25 16:25] LABS: BASOPHILS % 0.2 % (0.0-1.0); EOSINOPHILS % 0.1 % (0.0-6.0); LYMPHOCYTES % 6.6 % (18.0-39.1); MONOCYTES % 5.1 % (4.4-11.3); NEUTROPHILS % 87.1 % (38.7-80.0); RED CELL DISTRIBUTION WIDTH 15.8 % (11.7-14.4)
[2025-05-25 16:48] LABS: INR 4.82
[2025-05-25 16:53] LABS: EST GLOMERULAR FILTRATION RATE 96.0 ML/MIN (>=60)
[2025-05-25 17:15] LABS: LEUKOCYTE ESTERASE ,URINE TRACE (NEGATIVE); PROTEIN,URINE DIPSTICK 1+ (NEGATIVE); URINE UROBILINOGEN 0.2 mg/dL (0.2 - 1)
[2025-05-25 17:27] LABS: WBC,URINE (MAN) 0-5 /HPF (0-5)
[2025-05-25] MEDS ORDERED: IOPAMIDOL 370 MG/ML 100 ML INFUS..BTL INJ ONE (18:55)
[2025-05-25] MEDS ORDERED: SODIUM CHLORIDE 0.9% 250ML 250 ML ONE (18:55)
[2025-05-25] MEDS: ONDANSETRON HCL INJ 2MG/ML 2ML 2 MG/ML VIAL IV STA (22:45)
[2025-05-25] MEDS: Morphine 4mg INJECTION 4 MG/ML INJ IV ONE (22:45)
[2025-05-25] MEDS ORDERED: SODIUM CHLORIDE FLUSH 10 ML SYR INJ PRN (23:45)
[2025-05-25] MEDS: PHYTONADIONE 10 MG/ML AMP SQ ONE (23:52)
[2025-05-26] VITALS (13 sets, daily range): BP systolic 153–189; BP diastolic 60–88; PULSE 66–81; RESP 16–20; TEMP 97.6–99.2; O2SAT 95–98
[2025-05-26] MEDS ORDERED: WARFARIN SODIUM3 MG PO (01:40)
[2025-05-26] MEDS ORDERED: AMIODARONE HCL200 MG PO (01:40)
[2025-05-26 05:56] LABS: BASOPHILS % 0.3 % (0.0-1.0); EOSINOPHILS % 0.2 % (0.0-6.0); LYMPHOCYTES % 8.9 % (18.0-39.1); MONOCYTES % 6.1 % (4.4-11.3); NEUTROPHILS % 83.6 % (38.7-80.0); RED CELL DISTRIBUTION WIDTH 15.9 % (11.7-14.4)
[2025-05-26 06:12] LABS: INR 4.25
[2025-05-26 06:38] LABS: EST GLOMERULAR FILTRATION RATE 102.0 ML/MIN (>=60)
[2025-05-26] MEDS ORDERED: ONDANSETRON HCL INJ 2MG/ML 2ML 2 MG/ML VIAL IV PRN (09:00)
[2025-05-26] MEDS ORDERED: HYDROCODONE/APAP 10MG-325MG TAB PO PRN (09:00)
[2025-05-26] MEDS: POTASSIUM CHLORIDE 20 MEQ TAB CR PO ONE ×2 (09:05→09:06)
[2025-05-26] MEDS: LABETALOL HCL 100 MG TAB PO SCH (09:05)
[2025-05-26] MEDS: AMLODIPINE BESYLATE 5 MG TAB PO SCH (09:05)
[2025-05-26] MEDS: AMIODARONE HCL 200 MG TAB PO SCH (09:06)
[2025-05-26] MEDS: PHYTONADIONE 10 MG/ML AMP SQ ONE (09:07)
[2025-05-26] MEDS: SENNA-S TABLET PO SCH (10:29)
[2025-05-26] MEDS: SODIUM CHLORIDE 0.9% 250ML 250 ML ONE (16:22)
[2025-05-26] MEDS: HYDRALAZINE HCL 20 MG/ML VIAL IV PRN (16:30)
[2025-05-26] MEDS: ATORVASTATIN 40 MG TAB PO SCH (20:25)
[2025-05-27] VITALS (7 sets, daily range): BP systolic 142–171; BP diastolic 45–83; PULSE 55–72; RESP 17–22; TEMP 97.6–98.1; O2SAT 95–99
[2025-05-27] MEDS ORDERED: ONDANSETRON HCL INJ 2MG/ML 2ML 2 MG/ML VIAL IV PRN (02:00)
[2025-05-27] MEDS: SODIUM CHLORIDE 0.9% 250ML 250 ML ONE (07:25)
[2025-05-27 07:26] LABS: BASOPHILS % 0.3 % (0.0-1.0); EOSINOPHILS % 1.1 % (0.0-6.0); LYMPHOCYTES % 13.2 % (18.0-39.1); MONOCYTES % 6.5 % (4.4-11.3); NEUTROPHILS % 78.3 % (38.7-80.0); RED CELL DISTRIBUTION WIDTH 16.4 % (11.7-14.4)
[2025-05-27 07:44] LABS: PHOSPHORUS 3.6 MG/DL (2.3-4.7)
[2025-05-27 07:47] LABS: INR 1.17
[2025-05-27 08:09] LABS: EST GLOMERULAR FILTRATION RATE 98.0 ML/MIN (>=60)
[2025-05-27] MEDS: Morphine 4mg INJECTION 4 MG/ML INJ IV PRN (08:45)
[2025-05-27] MEDS: NITROGLYCERIN 0.4 MG SUBL SL PRN (10:54)
[2025-05-27] MEDS ORDERED: ENOXAPARIN SOD INJ 40 MG/0.4 ML SYR SC SCH (21:00)
[2025-05-27] MEDS: ENOXAPARIN SODIUM INJ 100 MG/ML SYR SC SCH (22:16)
[2025-05-28 00:33] VITALS: BP 161/68; PULSE 65; RESP 20; TEMP 98.2; O2SAT 99
[2025-05-28 05:17] VITALS: BP 155/92; PULSE 65; RESP 17; TEMP 97.5; O2SAT 97
[2025-05-28 07:16] LABS: BASOPHILS % 0.3 % (0.0-1.0); EOSINOPHILS % 1.7 % (0.0-6.0); LYMPHOCYTES % 13.3 % (18.0-39.1); MONOCYTES % 6.0 % (4.4-11.3); NEUTROPHILS % 77.7 % (38.7-80.0); RED CELL DISTRIBUTION WIDTH 16.4 % (11.7-14.4)
[2025-05-28 07:29] LABS: CHOL/HDL RATIO 3.3 (3.9-4.7); EST GLOMERULAR FILTRATION RATE 100.0 ML/MIN (>=60); LDL CHOLESTEROL 56.0 MG/DL (60-130)
[2025-05-28 08:00] VITALS: BP 168/67; PULSE 62; RESP 18; TEMP 97.7; O2SAT 97
[2025-05-28 09:00] VITALS: BP 168/67; PULSE 62; RESP 18; TEMP 97.6; O2SAT 97
[2025-05-28] MEDS: AMLODIPINE BESYLATE 5 MG TAB PO SCH (09:11)
[2025-05-28 09:12] VITALS: BP 168/67; PULSE 62
[2025-05-28] MEDS: GABAPENTIN 100 MG CAP PO SCH (10:47)
[2025-05-28] MEDS ORDERED: ENOXAPARIN SODIUM INJ 100 MG/ML SYR SC SCH (22:00)
== END 2025-05-28 11:05 | disposition home or self-care (01) | DRG 690 ==
LOC: ER 16:56 → ERHOLD 23:40 → MED/SURG3 05-26 00:50
PROVIDERS: ADMIT Internal Medicine; ATTEND Internal Medicine
PROC: 30233K1 Transfusion of Nonautologous Frozen Plasma into Peripheral Vein, Percutaneous Approach (ICD-10-PCS; principal; 2025-05-26)
DX: N13.6 Pyonephrosis (principal); D68.9 Coagulation defect, unspecified; Z16.12 Extended spectrum beta lactamase (ESBL) resistance; Z68.42 Body mass index [BMI] 45.0-49.9, adult; E66.01 Morbid (severe) obesity due to excess calories; T45.511A Poisoning by anticoagulants, accidental (unintentional), initial encounter; K76.0 Fatty (change of) liver, not elsewhere classified; I48.91 Unspecified atrial fibrillation; I16.0 Hypertensive urgency; I10 Essential (primary) hypertension; E78.5 Hyperlipidemia, unspecified; E87.6 Hypokalemia; R31.0 Gross hematuria; N40.0 Benign prostatic hyperplasia without lower urinary tract symptoms; G47.33 Obstructive sleep apnea (adult) (pediatric); K21.9 Gastro-esophageal reflux disease without esophagitis; M47.816 Spondylosis without myelopathy or radiculopathy, lumbar region; Z79.01 Long term (current) use of anticoagulants; Z79.51 Long term (current) use of inhaled steroids; Z85.46 Personal history of malignant neoplasm of prostate; Z88.6 Allergy status to analgesic agent
CPT/HCPCS: 36415; 70450; 71045; 74178; 80048; 80053; 80061; 81001; 83735; 83880; 84100; 84484; 85025; 85610; 85730; 86900; 87086; 87186; 93005; 94799; 99284; J0360; J0696; J1650; J2270; J2405; J3430; J7050; P9017; Q9967